=== PATIENT | male | born 1960 | race Caucasian/White ===

== ENCOUNTER 2017-01-17 14:09 | Emergency (ER) | payer BC, MEDICARE ==
[~2017-01-17] VITALS: Ht 170.2 cm; Wt 90.7 kg
[~2017-01-17 14:09] MED LIST: ETOD400T PO; HYDR-2802 PO; LINA1TAB5 PO; MILN50TA PO; PRAM0.5T5 PO; PREG25CA PO; TAPE50TA10 PO; TIZA4CAP PO; ZOLP10TA4 PO
[2017-01-17 14:27] VITALS: BP 127/71
--- NOTE | 2017-01-17 14:59 | RAD ---
Examination: 2 views of the right hip and a frontal view of the pelvis History: History of right hip pain for 3 weeks Comparison: None available Findings: The bilateral femoral heads are within the acetabula. Mild joint space loss identified in the bilateral hip joints. There is no acute fracture or dislocation identified. Impression: 1. No acute osseous findings. 2. Mild degenerative changes bilateral hip joints.
[2017-01-17] MEDS ORDERED: PRED20TA PO (15:44)
[2017-01-17] MEDS ORDERED: CYCL10TA2 PO (15:44)
--- NOTE | 2017-01-17 15:44 | PHYS DOC ---
Past Medical History Past Medical History: Arthritis, Depression, Diabetes-Type II, Fibromyalgia, Other Additional Past Medical Histor: rheumatoid arthritis,LUPUS Past Surgical History: Knee Replacement, Pacemaker, Other Additional Past Surgical Histo: L knee repl, R rotator cuff sx, back sx Alcohol Use: None Drug Use: None Adult General Chief Complaint Chief Complaint: HIP PAIN [place] [facility] [employer] [facility] HPI Patient is a 56 year old male presents emergency Department with right hip pain that radiates down to the knee. Patient states that this is been going on for a couple weeks. He states that he does take hydrocodone 7.5 which is really not even touching the pain or discomfort. Patient does state that he has arthritis throughout his body. He also states that he has multiple health problems. Patient also states that he is unable to take ibuprofen 2 diabetes. Patient denies any falls or injuries. He denies any numbness or tingling down into the lower leg however he does have the numbness and tingling to the knee. He states the pain is a 7-10 he states that it is a sharp type of pain and discomfort. Review of Systems Review of Systems Constitutional: Denies fever or chills [] Eyes: Denies change in visual acuity, redness, or eye pain [] HENT: Denies nasal congestion or sore throat [] Respiratory: Denies cough or shortness of breath [] Cardiovascular: No additional information not addressed in HPI [] GI: Denies abdominal pain, nausea, vomiting, bloody stools or diarrhea [] : Denies dysuria or hematuria [] Musculoskeletal: Denies back pain complaint of right hip pain and discomfort. Integument: Denies rash or skin lesions [] Neurologic: Denies headache, focal weakness or sensory changes [] Endocrine: Denies polyuria or polydipsia [] Allergies Allergies Allergies Coded Allergies Type Severity Reaction Last Updated Verified No Known Drug Allergies 10/17/13 No Physical Exam Physical Exam Constitutional: Well developed, well nourished, no acute distress, non-toxic appearance. [] HENT: Normocephalic, atraumatic, bilateral external ears normal, oropharynx moist, no oral exudates, nose normal. [] Eyes: PERRLA, EOMI, conjunctiva normal, no discharge. [] Neck: Normal range of motion, no tenderness, supple, no stridor. [] Cardiovascular:Heart rate regular rhythm, no murmur [] Lungs & Thorax: Bilateral breath sounds clear to auscultation [] Skin: Warm, dry, no erythema, no rash. [] Back: No tenderness Extremities: Patient was noted to have point tenderness over the right hip area causing the same type of pain in which she states she's been having., no cyanosis, no clubbing, ROM intact, no edema. Peripheral pulses 2+ cap refill brisk less than 2 seconds. Neurologic: Alert and oriented X 3, normal motor function, normal sensory function, no focal deficits noted. [] Psychologic: Affect normal, judgement normal, mood normal. [] Current Patient Data Vital Signs Vital Signs Date Time Temp Pulse Resp B/P (MAP) Pulse Ox O2 Delivery O2 Flow Rate FiO2 01/17/17 14:27 97.7 70 18 127/71 (89) 97 Room Air 97.7 EKG EKG [] Radiology/Procedures Radiology/Procedures [] Course & Med Decision Making Course & Med Decision Making Pertinent Labs and Imaging studies reviewed. (See chart for details) Patient will be provided with morphine injection here the emergency department as well as Norflex injection. He'll be discharged home with prednisone in which he was instructed will cause his glucoses to be elevated. He was also instructed to monitor his glucoses while on the prednisone and adjust medication accordingly if necessary. Patient was also provided a prescription for Flexeril. He was instructed this medication will cause drowsiness do not take any be alert and oriented. Patient can continue to take his hydrocodone as directed. Patient states he does have an appointment with his primary care physician on Thursday. Patient will be discharged home in stable condition signs and symptoms to return back to emergency department has been provided. Patient has called his to come and pick him up that she had dropped him off. He will be discharged home in stable condition. Patient agrees with discharge instructions treatment regimens and follow-up recommendations. [] Dragon Disclaimer Dragon Disclaimer This electronic medical record was generated, in whole or in part, using a voice recognition dictation system. Departure Departure Impression: Primary Impression: Right sciatic nerve pain Disposition: HOME, SELF-CARE Condition: STABLE Referrals: WILMER GRIFFITH (PCP) Patient Instructions: Sciatica, [id number] Additional Instructions: Activity as tolerated. Medications as prescribed. Prednisone will cause her glucoses to be elevated please monitor your glucoses and change her medication accordingly. Flexeril will cause drowsiness do not take any be alert and oriented. Continue with your hydrocodone in which she state you have at home. Taking Flexeril and hydrocodone may cause severe drowsiness and increase her chances of falls. You may also try ice packs to the hip area to help with pain and discomfort. If you're lying on your back may sure you use a pillow underneath her knees to help relieve some of the pain and discomfort in the hip area. When lying on your side make sure you have a pillow between your needs to help her. Leg up for proper body mechanics. Keep your appointment with her primary care physician which she state you have tomorrow. Return back to the emergency department for signs and symptoms of become worse. Scripts Prednisone (PREDNISONE) 20 Mg Tablet 40 MG PO DAILY, #14 TAB Prov: VIRGIE FISHER APRN 01/17/17 Cyclobenzaprine Hcl (CYCLOBENZAPRINE HCL) 10 Mg Tablet 10 MG PO TID, #30 TAB Prov: VIRGIE FISHER APRN 01/17/17 VIRGIE FISHER APRN Jan 17, 2017 15:44
[2017-01-17] MEDS ORDERED: ORPHENADRINE CITRATE 60 MG/2 ML VIAL. IM ONE (15:45)
[2017-01-17] MEDS ORDERED: MORPHINE SULFATE 4 MG/ML DISP.SYRIN. IM ONE (15:45)
== END 2017-01-17 15:55 | disposition home or self-care (01) ==
LOC: ER 14:09
DX: M54.31 Sciatica, right side (principal); F32.9 Major depressive disorder, single episode, unspecified; E11.9 Type 2 diabetes mellitus without complications; M79.7 Fibromyalgia; M06.9 Rheumatoid arthritis, unspecified; Z96.659 Presence of unspecified artificial knee joint
CPT/HCPCS: 73502; 96372; 99284; J2270; J2360

== ENCOUNTER 2017-03-18 23:57 | Emergency (ER) | payer BC, MEDICARE ==
[~2017-03-18 23:57] MED LIST changes: +CYCL10TA2 PO; +PRED20TA PO
[2017-03-19 00:35] VITALS: BP 125/94
== END 2017-03-19 04:57 | disposition left against medical advice (07) ==
LOC: ER 23:57
DX: M54.31 Sciatica, right side (principal); L93.0 Discoid lupus erythematosus; Z53.21 Procedure and treatment not carried out due to patient leaving prior to being seen by health care provider

== ENCOUNTER → 2019-08-22 | Outpatient (CLI) | payer BC, MEDICARE ==
[~2019-08-22] MED LIST changes: +IOHEXOL 180 MG/ML 10 ML VIAL. IT ONE; +LIDOCAINE 1% Multi-Dose 20 ML VIAL. ID ONE
--- NOTE | 2019-08-22 16:23 | [facility]IC ---
CT lumbar spine exam History: Lumbar stenosis, pain into the posterior side of the both legs Technique: CT imaging was performed of the lumbar spine after injection for lumbar myelogram. Multiplanar reconstruction images are submitted. Exposure: One or more of the following individualized dose reduction techniques were utilized for this examination: 1. Automated exposure control 2. Adjustment of the mA and/or kV according to patient size 3. Use of iterative reconstruction technique. Comparison: October 17, 2013; July 14, 2019 Findings: Lumbar vertebral body stature is overall maintained. There is posterior interspinous fusion device at the L4-5 level as seen on the more recent exam, superior aspect of the device not adjacent to mineralized bone, small bone fragment just superiorly now with more linear margin of the posterior aspect of the L4 spinous process adjacent to the device. Inferior margin of device is adjacent to normally mineralized L5 spinous process. There is grade 1 anterior spondylolisthesis at L4-5. There is again moderate degenerative disc disease at L1-L2 and L5-S1 and also greater posteriorly at L4-5, minimally at L3-4. There is vacuum disc disease at L5-S1, developed since the 2013 exam. Conus terminates at the inferior aspect of L1. T12-L1: Neural foramina and spinal canal are adequate. L1-L2: There is again minimal disc osteophyte complex and partially calcified bulge slightly indenting the ventral thecal sac without spinal stenosis. Neural foramina are adequate. There is [id number] facet degenerative change. L2-L3: There is mild buckling of the ligamentum flavum and facet hypertrophic change. There is minimal partially calcified bulge as seen previously, very mild indentation upon the ventral thecal sac without spinal stenosis. Neural foramina are overall adequate. L3-L4: There is minimal disc osteophyte complex and partially calcified bulge. There is mild indentation upon the ventral thecal sac. There is again moderate facet degenerative change and mild to moderate buckling of the ligamentum flavum. Spinal canal is adequate. There is mild narrowing of the inferior neural foramina. L4-L5: There is again fairly severe facet degenerative change, gas in the facet articulations bilaterally. There is [id number] buckling of the ligamentum flavum. There is minimal partially calcified bulge, mild indentation upon the ventral thecal sac. Spinal canal is not significantly narrowed. There is disc osteophyte complex resulting in fairly severe narrowing of the right neural foramen with impingement of the exiting right L4 nerve root extending to proximal extraforaminal region, developed since the 2014 exam. There is minimal posterior narrowing of the inferior left neural foramen by facet. L5-S1: There is again bilateral facet degenerative change, minimal gas in the facet articulations. Spinal canal is overall adequate. There is very minimal disc osteophyte complex. There is minimal narrowing of the right neural foramen mostly from facet. There is again moderate to severe narrowing of the left neural foramen by disc osteophyte complex and facet with contact of the exiting left L5 nerve root. Impression: 1. Comparing with the 2014 exam, there is L4-5 posterior interspinous fusion device now present although the superior margin device is adjacent to demineralized bone or fibrosis, now more linear-appearing defect of the posterior L4 spinous process which may be due to osteolysis. There is again grade 1 anterior spondylolisthesis L4-5. There is multilevel lumbar facet degenerative change. 2. There is multilevel lumbar degenerative disc disease greatest L1-2, L4-5, and L5-S1. 3. There is neural foramina compromise as stated, more significant narrowing on the right at L4-5 and on the left at L5-S1, progressed on the right at L4-5 in the interval with contact of the exiting right L4 nerve root extending to proximal extraforaminal region. Electronically signed by: Jose Antonio Mckniney MD (08/22/2019 4:20 PM) [email or web address]
--- NOTE | 2019-08-22 16:24 | KCIC ---
Lumbar Myelogram History: Lumbar stenosis, pain into the posterior side of both legs, history of lumbar surgery Technique: Patient was informed of the risks of the procedure to include pain, infection, bleeding, seizures, nerve root injury, and allergic reaction to the contrast. All questions were answered. Patient signed a written consent form for a lumbar myelogram. The patient was placed in a prone oblique position on the fluoroscopy table. External site of the lower back was prepped and draped in the usual sterile fashion. Betadine was utilized for cleansing solution. 1% lidocaine was utilized for local anesthesia at the anticipated site of puncture right L3-4 interlaminar space. A 19-gauge guiding needle was advanced into the soft tissues. Through the guiding needle, a 25 gauge Pierre needle was advanced until there was return of cerebral spinal fluid. Approximately 15 cc Omnipaque 180 were then injected during fluoroscopic visualization. The needles were removed. Fluoroscopic spot images were acquired of the lumbar spine. Due to leg pain, patient could not stand, images performed in semiupright position to include flexion and extension lateral views The patient was then transferred to the CT department for CT examination of the lumbar spine. There were no immediate complications. Fluoroscopy time: 1 minute 8 seconds, 18 images Findings: There is no evidence of myelographic block. There is posterior L4-5 interspinous fusion device. There is degenerative disc disease greatest at L1-2, L4-5, and L5-S1. There is mild grade 1 anterior spondylolisthesis at L4-5 decreased with flexion and to a lesser degree with extension. There is minimal posterior subluxation of L1 relative to L2 fairly similar with flexion and extension. There are anterior external defects variably throughout the lumbar spine. Impression: 1. There is degenerative disc disease greatest at L1-2, L4-5, and L5-S1. 2. There is mild grade 1 anterior spondylolisthesis L4-5, decreased with flexion and extension. 3. There are anterior extradural defects variably throughout the lumbar spine. Electronically signed by: Jose Antonio Mckinney MD (08/22/2019 4:21 PM) [email or web address]
== END | disposition home or self-care (01) ==
LOC: KCIC 09:41
PROVIDERS: ATTEND Neurological Surgery
DX: M43.16 Spondylolisthesis, lumbar region (principal); M48.062 Spinal stenosis, lumbar region with neurogenic claudication; M51.36 Other intervertebral disc degeneration, lumbar region; M25.78 Osteophyte, vertebrae
CPT/HCPCS: 72132; 72265; Q9965

== ENCOUNTER → 2019-09-06 | Outpatient (CLI) | payer MEDICARE ==
[~2019-09-06] MED LIST changes: +HYDR-2769 PO; +INSU100V37 SQ; -IOHEXOL 180 MG/ML 10 ML VIAL. IT ONE; -LIDOCAINE 1% Multi-Dose 20 ML VIAL. ID ONE; +METF10007 PO; +TRAZ-118 PO
== END | disposition home or self-care (01) ==
LOC: SURGPAT 10:32
PROVIDERS: ATTEND Neurological Surgery
DX: Z01.818 Encounter for other preprocedural examination (principal); M43.16 Spondylolisthesis, lumbar region; M47.26 Other spondylosis with radiculopathy, lumbar region
CPT/HCPCS: 36415; 85610; 85730; 87641

== ENCOUNTER → 2019-11-10 | Outpatient (CLI) | payer MEDICARE ==
[2019-09-17 11:00] VITALS: BP 106/70
[~2019-11-10] MED LIST changes: +DOCU-153 PO; +METH750T2 PO; +OXYC1TAB15 PO; -PREG25CA PO; +PREG25CA41 PO
--- NOTE | 2019-11-10 14:26 | RAD ---
INDICATION: Back pain COMPARISON: September 15, 2019 IMPRESSION: Lumbar spine: 2 views obtained. Postoperative changes to the lumbar spine with pedicle screws and stabilizing kim at L4-5 with posterior decompression changes and artificial disc. Grade 1 anterolisthesis of L4 on 5. Degenerative changes are identified with osteophyte formation at the vertebral body endplates. Mild wedging of the L2 L1 vertebral bodies again seen. Electronically signed by: Corey Herron MD (11/10/2019 2:24 PM) [id number]
== END | disposition home or self-care (01) ==
LOC: RAD 11:38
PROVIDERS: ATTEND Neurological Surgery
DX: M47.816 Spondylosis without myelopathy or radiculopathy, lumbar region (principal); M25.78 Osteophyte, vertebrae
CPT/HCPCS: 72100

== ENCOUNTER → 2019-12-19 | Outpatient (CLI) | payer MEDICARE ==
[2019-09-17 11:00] VITALS: BP 106/70
[~2019-12-19] MED LIST changes: +PREG200C PO; +ZOLP5TAB5 PO
--- NOTE | 2019-12-19 09:54 | RAD ---
CT lumbar spine without contrast HISTORY: Lumbar radiculopathy. COMPARISON: CT lumbar spine September 15, 2019. FINDINGS: Lumbar vertebral body height and alignment intact. 2 mm anterolisthesis of L4 on L5 is stable. Since the prior exam the L4-L5 spinous process fusion device has been removed and there are new postoperative changes of right L4 laminotomy and L4-5 foraminotomy, discectomy and fusion at L4-5 with interbody spacer and bilateral pedicle screws with rods. No bone lysis surrounding the pedicle to suggest loosening. No abnormal positioning or migration of the interbody spacer evident which is slightly right of midline within the interbody space, there is mild asymmetric lytic bone defect with mildly irregular margins of the L4 inferior vertebral endplate and trabecular bone of the vertebral body best demonstrated coronal images 17-20 and sagittal images 33-35 involving a depth of 25 percent of the vertebral height, with a smaller lytic defect of the L5 vertebral superior endplate, not typical of a fracture given the irregular margins, these could be a surgical defect although development of localized bone lysis from loosening related to foreign body granulomatous response to the spacer is also a possibility, this defect is not apparent on the postoperative x-rays from November 10, 2019 although could be below the sensitivity for detection on x-ray imaging relative to CT imaging. The right L4 pedicle screw breaches the anterior lateral vertebral cortex to the right vertebral space a distance proud of the bone of 5 mm. Aortoiliac artery calcified plaque. Linear scarring dorsal paraspinal tissues. Noncontrast CT imaging has limited sensitivity for detecting postoperative fluid collections. Disc disease is described below. L1-L2: Disc height loss, mild to moderate disc bulge, mild annulus calcification, at least mild spinal canal and neural foraminal stenoses, stable. L2-L3: Mild disc bulge with annulus calcification, at least mild spinal canal and [id number] neural foraminal stenoses, stable. L3-L4: Mild disc bulge, annulus calcification, mild lateral vertebral endplate spurring, facet hypertrophy and spurring, at least mild spinal canal stenosis and [id number] neural foraminal stenoses, stable. L4-L5: Streak artifact somewhat limits bony and soft tissue detail at this level. Bony spinal canal grossly decompressed although some residual mild canal narrowing due to persistent ligament flavum thickening combined with facet hypertrophy and spurring is possible. There is increased soft tissue density at the right lateral recess and right neural foramina presumably postsurgical scarring although recurrent or residual disc fragment at this region cannot be excluded on this exam, which obliterates the perineural fat about the foraminal right L4 nerve. Right lateral vertebral endplate spurring contributes to at least residual moderate right foraminal stenosis. There is mild left foraminal stenosis. L5-S1: Disc height loss, disc bulge, lateral vertebral endplate spurring and facet spurring, at least mild spinal canal stenosis, and moderate to severe neural foraminal stenoses, stable. IMPRESSION: 1. Since the prior study there has been postoperative change of right L4-L5 laminotomy and foraminotomy, discectomy and fusion with interbody spacer and bilateral pedicle screws with rods. There is a localized lytic bone defect of the inferior L4 vertebral body endplate and subchondral trabecular bone with a smaller defect of the L5 vertebral superior endplate adjacent of the interbody spacer. See above. 2. Lumbar disc disease and arthritic change again demonstrated as described above. Exposure: One or more of the following individualized dose reduction techniques were utilized for this examination: 1. Automated exposure control 2. Adjustment of the mA and/or kV according to patient size 3. Use of iterative reconstruction technique Electronically signed by: Tapan Aranda MD (12/19/2019 9:51 AM) [id number]
== END | disposition home or self-care (01) ==
LOC: CT 08:00
PROVIDERS: ATTEND Neurological Surgery
DX: M51.16 Intervertebral disc disorders with radiculopathy, lumbar region (principal); M47.26 Other spondylosis with radiculopathy, lumbar region; M48.07 Spinal stenosis, lumbosacral region
CPT/HCPCS: 72131

== ENCOUNTER → 2019-12-26 | Outpatient (CLI) | payer MEDICARE ==
[2019-09-17 11:00] VITALS: BP 106/70
--- NOTE | 2019-12-26 14:16 | PAIN ---
DATE OF SERVICE: 12/26/2019 INITIAL CONSULTATION FOR PAIN CLINIC CHIEF COMPLAINT: Low back and bilateral lower extremity pain. HISTORY OF PRESENT ILLNESS: This is a 59-year-old male who presents with history of pain in low back, bilateral lower extremities, worse for about 2 months after he was recently postoperative from the lumbar hemilaminectomy and microdecompression with posterior instrumentation at L4-L5 that was on 09/14. The patient was doing very well after the surgery. He fell at home, tripped over a bag of mulch in the yard and fell on his back and had pain into the bilateral lower extremity since that time in the posterior gluteus and posterior thighs, radiating into the posterior knees as well and across the low back. The patient reports it is becoming more constant. It is a sharp pain in the back, dull and aching in the legs, sometimes sharp in the legs as well, burning in quality also. The patient reports moving or turning can exacerbate the pain, standing and walking, especially changing positions, sitting for more than 15-20 minutes, also standing for more than 20-30 and also significant fatigability of the lower extremities with walking or standing. The patient reports it awakens him from sleep at least 3-4 times a night, can affect his bowel or bladder control, but no incontinence. The patient reports some increased urinary frequency, does impede his activities, walking with a cane at times, does not have it with him today. The patient has been doing physical therapy exercises, which he learned from the previous surgery daily with stretching and strengthening without significant improvement. The patient has been walking every day despite the pain, but his legs tire out very quickly even after about 5-10 minutes, he has to stop and rest. The patient rates his disability from 0-10, 10 being the worst, is a 10 with recreational activities and social activity, 5 with sexual behavior, life support activities, and 10 with self care activities. The patient has tried axsa-jme-vucnkmq ibuprofen, also Tylenol, hydrocodone, also taking Lyrica and meloxicam, all without significant improvement in the pain. The patient did have a CT scan of the lumbar spine showing postoperative changes, right L4-L5 laminotomy and foraminotomy, diskectomy and fusion with interbody spacer and bilateral pedicle screws with rods and lumbar disk disease and arthritic change L5-S1 with mild spinal canal stenosis, [id number]-gd-jrlmgb neural foraminal stenosis, also ijpw-ku-vadxkyis neural foraminal stenosis at L3-L4. PAST MEDICAL HISTORY: Significant for pacemaker; type 2 diabetes, now insulin-dependent; restless leg syndrome; arthritis. PREVIOUS SURGERY: Include total knee in 2012 in the left, right rotator cuff repair, lumbar surgery in 2013, removal of hardware, decompression, L4-L5 fusion in 09/2019, previous pacemaker placement, and bilateral carpal tunnel repairs. CURRENT MEDICATIONS: Include pregabalin, zolpidem, Mirapex, metformin, hydrocodone, insulin, methocarbamol. ALLERGIES: The patient has no known drug allergies. FAMILY HISTORY: Significant for diabetes, arthritis, and hypertension. SOCIAL HISTORY: The patient does not drink alcohol, does not smoke. Denies any illegal, illicit or recreational drugs. He is , lives with his spouse, lives locally in [place], [place]. Reports he is currently disabled. REVIEW OF SYSTEMS: The patient's review of systems is positive for those items mentioned in history of present illness. All systems reviewed and otherwise negative. It is complete, full and well documented on the patient's chart. PHYSICAL EXAMINATION: VITAL SIGNS: The patient's blood pressure , pulse is 80, respirations 16, temperature 97.7 degrees Fahrenheit, height is 5 feet 7 inches, weight is 218 pounds. GENERAL: The patient is awake, alert, oriented, appropriate, very pleasant demeanor. HEENT: Shows normocephalic, atraumatic. Extraocular movements are intact and symmetrical. Oral cavity: Mucous membranes moist and pink. Dentition is intact. NECK: Shows anterior throat supple without palpable lymphadenopathy noted. Swallow reflex symmetrical. CHEST: Shows normal on inspection. Breath sounds are clear bilaterally. HEART: Shows S1, S2 clear. No murmurs auscultated. ABDOMEN: Soft, nontender, nondistended. No palpable organomegaly is noted. No rebound or guarding demonstrated. BACK: Shows spine grossly in the midline. Normal appearing thoracic kyphosis, lumbar lordotic curvature is slightly flattened with well-healed surgical scar noted. Lumbar paraspinous muscle shows symmetrical on inspection, on palpation shows some moderate tenderness diffusely bilaterally, but only diffusely without significant radiation. The patient's back shows moderate tenderness with palpation diffusely, mobility shows some moderate tenderness with rotation both right greater than 10 degrees and left greater than 10 degrees, also extension greater than 10 degrees and forward flexion at 45 degrees, all reproduce some moderate pain across the low back, but not into the lower extremities. EXTREMITIES: The patient's lower extremities show deep tendon reflexes at 1+/4 in the patellar and tendo calcaneus tendons are equal. Motor exam is approximately 4 on a scale of 5, but symmetrical with dorsiflexion, extension, quadriceps and hamstring flexion and are equal bilaterally. Peripheral pulses are 1+ posterior tibia. No peripheral edema is noted. Lower extremities are warm and dry to touch, equal in color and appearance. Straight leg raise noted to be mildly positive on the right about 40 degrees with pain into the posterior gluteus, posterior thigh, but is decreased with knee flexion, but not relieved. Left side is negative. Gaenslen's and Cody's maneuvers are negative bilaterally. Peripheral pulses are 1+. No peripheral edema is noted. The patient is able to stand, stand on his toes and some moderate discomfort with putting all his weight on one foot or the other. Walks with a very slow cautious gait, does not appear to favor the right or left lower extremity significantly, but is very careful with his movements and has a very straight appearance of his back when ambulating and appears uncomfortable, not using any assistive devices on his visit today, but again has a cane, he uses occasionally when he is going further distances. SKIN: Shows warm and dry, good turgor. No edema. No sores, rashes or bruising. IMPRESSION: 1. This is a 59-year-old male with history of recent surgery and then fall about 2 months ago, pain in the low back, bilateral lower extremities in a radicular fashion following L5-S1 dermatomal distribution. 2. CT scan of lumbar spine as noted. 3. Arthritis. 4. Diabetes. PLAN: Options were discussed with the patient including continued physical therapies, medication managements, interventional techniques and he is doing physical therapy routinely, exercises routinely, also walking daily and stretching daily, also is taking anti-inflammatories as well as narcotics and Lyrica without significant decrease in pain. He would like to pursue interventional techniques. We discussed a lumbar epidural steroid using description as well as anatomical models to describe the procedure. The patient will wait for preauthorization with insurance provider. In the meantime, we will continue with stretching and strengthening exercises, walking daily as tolerated. His neurosurgeon tried Medrol Dosepak without significant improvement. Therefore, we will not repeat this as well as risk of increased blood glucose. The patient will wait for preauthorization. We will plan on L5-S1 translaminar approach versus caudal approach for L5-S1 for his radicular pain. SHAHEEN BARRAGAN MD DR: EFRAÍN/jose luis JOB#: [id number] / [id number] WILMER Avilez
== END | disposition home or self-care (01) ==
LOC: PNCL 10:15
PROVIDERS: ATTEND Anesthesiology
DX: G56.03 Carpal tunnel syndrome, bilateral upper limbs (principal); E11.9 Type 2 diabetes mellitus without complications; M19.90 Unspecified osteoarthritis, unspecified site
CPT/HCPCS: G0463

== ENCOUNTER → 2020-01-09 | Outpatient (CLI) | payer MEDICARE ==
[2019-09-17 11:00] VITALS: BP 106/70
[~2020-01-09] MED LIST changes: +IOHEXOL 180 MG/ML 10 ML VIAL. ONE; +LISI10TA2 PO; +methylPREDNISolone ACETATE 40 MG/ML VIAL. ONE; +methylPREDNISolone ACETATE 80 MG/ML VIAL. ONE
--- NOTE | 2020-01-09 10:17 | PAIN ---
DATE OF SERVICE: 01/09/2020 PROGRESS NOTE FOR PAIN CLINIC DIAGNOSES: Lumbar radiculopathy with lumbar degenerative disk disease and lumbar post-laminectomy syndrome. HISTORY OF PRESENT ILLNESS: The patient is a 59-year-old male who returns for followup status post initial evaluation and preauthorization for lumbar epidural steroid injection. He has obtained that and would like to proceed, still significant pain in low back and bilateral lower extremities, right greater than left, but present bilaterally, posterior gluteus, posterior thighs, posterior calves, worse with walking, standing, changing positions, waking him from sleep at least 4-5 times a night. The patient reports it is a 9 on a scale of 10 at all times, worst, average and least and is a 9 today. The patient reports it is burning, becoming more unbearable, constant, worse with walking and weightbearing. The patient reports no new motor or sensory deficits, no new bowel or bladder incontinence. PHYSICAL EXAMINATION: VITAL SIGNS: The patient's blood pressure is 141/88, pulse 70, respirations 18, temperature 97.9 degrees Fahrenheit, weight is 214 pounds. GENERAL: The patient is awake, alert, oriented, appropriate, very pleasant demeanor. HEENT: Shows normocephalic, atraumatic. Extraocular movements are intact and symmetrical. Oral cavity: Mucous membranes moist and pink. Dentition is intact. NECK: Shows anterior throat supple without palpable lymphadenopathy noted. Swallow reflex symmetrical. CHEST: Shows normal on inspection. Breath sounds are clear bilaterally. HEART: Shows S1, S2 clear. No murmurs auscultated. ABDOMEN: Soft, nontender, nondistended. No palpable organomegaly is noted. No rebound or guarding demonstrated. BACK: Shows spine grossly in the midline. Normal appearing thoracic kyphosis with significant flattening of lumbar the lordotic curvature. Well-healed surgical scar noted. Lumbar paraspinous muscle shows symmetrical on inspection, palpation shows some moderate tenderness diffusely bilaterally going diffusely without significant radiation. The patient has good rotation of motion of the lumbar spine, both laterally as well as extension and flexion with some moderate decrease in limitation on extension secondary to mechanical movement without significant pain involved: Lower extremities show deep tendon reflexes at 1+ in the patellar and tendo calcaneus tendons. Motor exam is approximately 4 on a scale of 5, but equal and symmetrical peripheral dorsiflexion, extension, quadriceps and hamstring flexion. Peripheral pulses are 1+ posterior tibia. No peripheral edema bilaterally. Options were discussed with the patient. The patient's old chart was reviewed as his current medication regimen updated. Current review of systems updated today as well and we will proceed with a lumbar epidural steroid injection today with fluoroscopic guidance. Risks were discussed including but not limited to bleeding, infection, possibility of epidural hematoma, subsequent neurological compromise, dural puncture, headaches, spinal cord and/or nerve damage, side effects of steroid medication and poor results regarding pain control. The patient understands and wished to proceed. The patient will return to clinic in approximately 2 weeks for followup. She was counseled on return appointment, activity level and side effects to be aware of. DIAGNOSIS: Lumbar radiculopathy with lumbar degenerative disk disease and lumbar post-laminectomy syndrome. PROCEDURE: Lumbar epidural steroid injection, translaminar approach at L5-S1 level using C-arm fluoroscopic guidance under sterile prep and drape using local anesthetic. MEDICATION INJECTED: A total of 120 mg Depo-Medrol plus 10 mL of preservative-free normal saline and 2 mL of contrast. CONDITION AT DISCHARGE: Stable. The patient tolerated procedure well, had no complications. SHAHEEN BARRAGAN MD DR: EFRAÍN/jose luis JOB#: [id number] / [id number]
== END ==
LOC: PNCL 08:13
PROVIDERS: ATTEND Anesthesiology
DX: M51.16 Intervertebral disc disorders with radiculopathy, lumbar region (principal); M96.1 Postlaminectomy syndrome, not elsewhere classified
CPT/HCPCS: 62323; J1030; J1040; Q9965

== ENCOUNTER → 2020-02-13 | Outpatient (CLI) | payer MEDICARE ==
[2019-09-17 11:00] VITALS: BP 106/70
[~2020-02-13] MED LIST changes: -LISI10TA2 PO
--- NOTE | 2020-02-13 09:04 | PAIN ---
DATE OF SERVICE: 02/13/2020 PROGRESS NOTE FOR PAIN CLINIC DIAGNOSES: Lumbar radiculopathy with lumbar degenerative disk disease and lumbar post-laminectomy syndrome. HISTORY OF PRESENT ILLNESS: The patient is a 59-year-old male who returns for followup status post lumbar epidural steroid injection x 1. The patient reports about 60% improvement overall for the first 3 weeks or so. The pain is beginning to return now, but only for the past few days. The patient reports it is in the low back, bilateral lower extremities, posterior gluteus, posterior thighs, posterior calves, worse with walking, standing, changing positions, especially getting up from a seated position. The patient reports it awakens him from sleep occasionally, but not every night. Initially for the first 3 weeks or so, is doing better with distance walking, doing household activities and work activities, recreational activities with greater ease and comfort and sleeping better. Now, the pain is beginning to awaken him from sleep once again. The patient reports no new motor or sensory deficits, no new bowel or bladder incontinence or other complaints. PHYSICAL EXAMINATION: VITAL SIGNS: The patient's blood pressure is 147/93, pulse 71, respirations 18, temperature 97.8 degrees Fahrenheit, and weight is 213 pounds. GENERAL: The patient is awake, alert, oriented, appropriate, very pleasant demeanor. HEENT: Head is normocephalic, atraumatic. Extraocular movements are intact and symmetrical. Oral cavity: Mucous membranes moist and pink. Dentition is intact. NECK: Shows anterior throat supple without palpable lymphadenopathy noted. Swallow reflex symmetrical. CHEST: Shows normal on inspection. Breath sounds are clear bilaterally. HEART: Shows S1, S2 clear. No murmurs auscultated. ABDOMEN: Soft, nontender, and nondistended. No palpable organomegaly is noted. No rebound or guarding demonstrated. BACK: Shows spine grossly in the midline. Well-healed surgical scarring noted in the lumbar distribution with normal or slightly flattened lumbar lordotic curvature. Lumbar paraspinous muscle shows symmetrical on inspection, on palpation shows some moderate tenderness diffusely bilaterally, only diffusely without significant radiation. The patient has good rotational motion of lumbar spine with some mild pain with extension and forward flexion, but only mildly so, but not with right and left lateral rotation. EXTREMITIES: The patient's lower extremities show deep tendon reflexes at 1+ in the patellar and tendo calcaneus tendons. Motor exam is approximately 4 on a scale of 5, but equal and symmetrical dorsiflexion, extension, quadriceps and hamstring flexion symmetrical. Peripheral pulses are 1+. No peripheral edema is noted bilaterally. Options were discussed with the patient. The patient's old chart was reviewed as his current medication regimen updated. Current review of systems updated today as well. We will proceed with a second in a series of lumbar epidural steroid injection today with fluoroscopic guidance. Risks were again discussed including, but not limited to bleeding, infection, possibility of epidural hematoma, subsequent neurological compromise, dural puncture, headaches, spinal cord and/or nerve damage, side effects of steroid medication and poor results regarding pain control. The patient understands and wished to proceed. The patient will return to clinic in approximately 2 weeks for followup. He was counseled as to return appointment, activity level and side effects to be aware of. DIAGNOSIS: Lumbar radiculopathy with lumbar degenerative disk disease and lumbar post-laminectomy syndrome. PROCEDURE: Lumbar epidural steroid injection, translaminar approach L5-S1 level using C-arm fluoroscopic guidance under sterile prep and drape using local anesthetic. MEDICATION INJECTED: A total of 120 mg Depo-Medrol plus 10 mL of preservative-free normal saline and 2 mL of contrast. CONDITION AT DISCHARGE: Stable. The patient tolerated procedure well, had no complications. SHAHEEN BARRAGAN MD DR: EFRAÍN/jose luis JOB#: [id number] / [id number]
== END | disposition home or self-care (01) ==
LOC: PNCL 08:09
PROVIDERS: ATTEND Anesthesiology
DX: M51.16 Intervertebral disc disorders with radiculopathy, lumbar region (principal); I10 Essential (primary) hypertension; M96.1 Postlaminectomy syndrome, not elsewhere classified; E11.9 Type 2 diabetes mellitus without complications; Z79.4 Long term (current) use of insulin; Z79.899 Other long term (current) drug therapy
CPT/HCPCS: 62323; J1030; J1040; Q9965

== ENCOUNTER → 2020-03-12 | Outpatient (CLI) | payer MEDICARE ==
[2019-09-17 11:00] VITALS: BP 106/70
[~2020-03-12] MED LIST changes: -IOHEXOL 180 MG/ML 10 ML VIAL. ONE; +LISI10TA2 PO; -methylPREDNISolone ACETATE 40 MG/ML VIAL. ONE; -methylPREDNISolone ACETATE 80 MG/ML VIAL. ONE
--- NOTE | 2020-03-12 08:18 | PDOC ---
Progress Note - Pain Clinic Date of Service: DOS: DATE: 03/12/20 TIME: 08:15 Diagnosis: Dx: Lumbar radiculopathy with lumbar degenerative disc disease lumbar postlaminectomy syndrome History or Present Illness: HPI: 59-year-old male returns follow-up status post lumbar epidural straight injection x2. Patient ports that 60 to 70% improvement the first 3 weeks the pain returning now over the past few days in the low back especially the right lower extremity posterior gluteus posterior thigh posterior calf also on the left side but mostly on the right. Patient ports worse with walking standing changing positions he find himself just sitting and watching TV most of the day because the pain is too great now over the past week to do much else patient reports is becoming more depressed because of the lack of ability to exercise and walk and stand patient rates pain as a 7 on scale 10 is worse over the past week 7 on average and a 6 at its least is a 7 today. Pain scribed as constant sharp stinging burning and shooting. Patient reports no new motor or sensory deficits no new bowel or bladder incontinence or other complaints. Physical Exam: VS: Blood pressure is 112/75 pulse 64 respirations 26 temperature 97.9 F weight is 207 pounds PE: PHYSICAL EXAMINATION: GENERAL: The patient is awake, alert, oriented, appropriate, very pleasant demeanor HEENT: Shows normocephalic, atraumatic. Extraocular movements are intact and symmetrical. Oral cavity: Mucous membranes moist and pink. NECK: Shows anterior throat supple without palpable lymphadenopathy noted. Swallow reflex symmetrical. CHEST: Shows normal on inspection. Breath sounds are clear bilaterally, no rales rhonchi or wheezes auscultated. HEART: Shows S1, S2 clear. No murmurs auscultated. ABDOMEN: Soft, nontender, nondistended. No palpable organomegaly is noted. No rebound or guarding demonstrated. BACK: Shows spine grossly in the midline. Normal-appearing cervical lordotic curvature. There is slightly increased thoracic kyphosis, some minor flattening of the lumbar lordotic curvature. Lumbar paraspinous muscles show symmetrical on inspection, on palpation shows some moderate tenderness diffusely throughout the upper, middle and lower distribution of the paraspinous muscles bilaterally without specific trigger points, without radiation of pain. The patient has good rotational motion of the lumbar spine, both laterally as well as extension and flexion without significant difficulty. No tenderness over the spinous processes, sacrum or sacroiliac regions. EXTREMITIES: Lower extremities show deep tendon reflexes 1+ in the patellar and tendo calcaneus tendons. Motor exam is 4 on a scale of 5 with right dorsiflexion, extension, quadriceps and hamstring flexion and 4/5 on the left. Peripheral pulses are 1+ posterior tibial. No peripheral edema is noted bilaterally. Lower extremities are warm and dry to touch, equal in color and appearance. SKIN: Shows warm and dry, good turgor. No edema. No sores, rashes or bruising throughout. Procedure: Procedure: Options were discussed with the patient. Patient will chart reviewed his current medication regimen updated current review of systems updated today as well. We will preauthorize patient for a third lumbar epidural steroid injection as he is in very well with the first 2 with radicular pain returning and L5-S1 dermatomal distribution greater on the right than the left. We will plan on translaminar approach at L5-S1 level epidural steroid injection upon approval. Patient would be given a Medrol Dosepak in the meantime is to be called into his pharmacy with instructions side effects aware of as well. Medication Injected: Med Injected: None Condition at Discharge: Condition at Discharge: Condition at discharge is stable SHAHEEN BARRAGAN MD Mar 12, 2020 08:18
== END | disposition home or self-care (01) ==
LOC: PNCL 07:43
PROVIDERS: ATTEND Anesthesiology
DX: M51.16 Intervertebral disc disorders with radiculopathy, lumbar region (principal); M96.1 Postlaminectomy syndrome, not elsewhere classified; I10 Essential (primary) hypertension; E11.9 Type 2 diabetes mellitus without complications; Z79.899 Other long term (current) drug therapy
CPT/HCPCS: G0463

== ENCOUNTER → 2020-03-26 | Outpatient (CLI) | payer MEDICARE ==
[2019-09-17 11:00] VITALS: BP 106/70
[~2020-03-26] MED LIST changes: +IOHEXOL 180 MG/ML 10 ML VIAL. ONE; +methylPREDNISolone ACETATE 40 MG/ML VIAL. ONE; +methylPREDNISolone ACETATE 80 MG/ML VIAL. ONE
--- NOTE | 2020-03-26 08:22 | PDOC ---
Progress Note - Pain Clinic Date of Service: DOS: DATE: 03/26/20 TIME: 08:19 Diagnosis: Dx: Lumbar radiculopathy with lumbar degenerative disc disease and lumbar postlaminectomy syndrome History or Present Illness: HPI: 51-year-old male returns follow-up status post lumbar epidurals injection x2. Patient reports about 20% improvement for the first week or so after the injections but the pain returned in the low back bilateral lower extremities posterior gluteus posterior thighs posterior calves worse with standing walking changing positions slightly worse on the right than the left are present bilaterally patient reports pain is burning constant becoming unbearable patient reports is 8 on a scale of 10 is worse the past week 7 on average and a 6-7 at its least is an 8 today patient reports no new motor or sensory deficits no new bowel or bladder incontinence or other complaints still significant pain not significantly improving long-term. Patient reports still worse with walking changing positions getting out of the car try to drive wakes him sleep about every 3-4 hours. Physical Exam: VS: Blood pressure is 120/84 pulse 83 respirations 16 temperature 97.7 F height is 5 feet 7 inches weight is 212 pounds PE: PHYSICAL EXAMINATION: GENERAL: The patient is awake, alert, oriented, appropriate, very pleasant demeanor HEENT: Shows normocephalic, atraumatic. Extraocular movements are intact and symmetrical. Oral cavity: Mucous membranes moist and pink. NECK: Shows anterior throat supple without palpable lymphadenopathy noted. Swallow reflex symmetrical. CHEST: Shows normal on inspection. Breath sounds are clear bilaterally. HEART: Shows S1, S2 clear. No murmurs auscultated. ABDOMEN: Soft, nontender, nondistended. No palpable organomegaly is noted. No rebound or guarding demonstrated. BACK: Shows spine grossly in the midline. Normal-appearing cervical lordotic curvature. There is slightly increased thoracic kyphosis, some minor flattening of the lumbar lordotic curvature. Lumbar paraspinous muscles show symmetrical on inspection, with well-healed midline surgical scar present, on palpation jenny ws some moderate tenderness diffusely throughout the upper, middle and lower distribution of the paraspinous muscles bilaterally and also into the lower thoracic paraspinous musculature, firm and tender, but without specific trigger points, without radiation of pain. The patient has good rotational motion of the lumbar spine, both laterally as well as extension and flexion without significant difficulty. No tenderness over the spinous processes, sacrum or sacroiliac regions. EXTREMITIES: Lower extremities show deep tendon reflexes 1+ in the patellar and tendo calcaneus tendons. Motor exam is 4 on a scale of 5 with right dorsiflex ion, extension, quadriceps and hamstring flexion and 4/5 on the left. Peripheral pulses are 1+ posterior tibial. No peripheral edema is noted bilaterally. Lower extremities are warm and dry to touch, equal in color and appearance. SKIN: Shows warm and dry, good turgor. No edema. No sores, rashes or bruising throughout. Procedure: Procedure: Options were discussed with the patient. Patient will chart was reviewed his his current medication regimen updated current review of systems updated today as well. We will proceed with a third in the series lumbar epidural to injection today with fluoroscopic guidance. Risks were discussed including but not limited to: Bleeding, infection, possibility of epidural hematoma and gonzalez bsequent neurological compromise, dural puncture, headaches, spinal cord and/or nerve damage, side effects of steroid medication, and poor results regarding pain control. Patient understands wished to proceed. Patient return to clinic in approximately 2 weeks for follow-up was counseled as to return appointment activity level and side effects be aware. We also discussed a spinal cord stimulator and patient would like to move forward in the preliminary stages of getting this set up for a stimulator trial. We will make these arrangements as well. Medication Injected: Med Injected: Procedure is lumbar epidural steroid injection under local anesthetic using sterile prep and drape at the L5-S1 level using C-arm fluoroscopic guidance in both AP and lateral views medications injected is 120 mg Depo-Medrol + 10 mL preservative-free normal saline and 2 mL contrast- condition at discharge is stable patient tolerated procedure well had no complications. Condition at Discharge: Condition at Discharge: Condition at discharge stable patient tolerated the procedure well had no com plications. SHAHEEN BARRAGAN MD Mar 26, 2020 08:22
== END | disposition home or self-care (01) ==
LOC: PNCL 07:40
PROVIDERS: ATTEND Anesthesiology
DX: M51.16 Intervertebral disc disorders with radiculopathy, lumbar region (principal); M96.1 Postlaminectomy syndrome, not elsewhere classified; I10 Essential (primary) hypertension; E11.9 Type 2 diabetes mellitus without complications; Z83.3 Family history of diabetes mellitus; Z79.84 Long term (current) use of oral hypoglycemic drugs; Z79.899 Other long term (current) drug therapy; Z79.82 Long term (current) use of aspirin
CPT/HCPCS: 62323; J1030; J1040; Q9965

== ENCOUNTER → 2020-04-24 | Outpatient (CLI) | payer MEDICARE ==
[2019-09-17 11:00] VITALS: BP 106/70
[~2020-04-24] MED LIST changes: -IOHEXOL 180 MG/ML 10 ML VIAL. ONE; +LIDOCAINE 1% PF 2 ML VIAL. ONE; -methylPREDNISolone ACETATE 40 MG/ML VIAL. ONE; -methylPREDNISolone ACETATE 80 MG/ML VIAL. ONE
--- NOTE | 2020-04-24 14:29 | PDOC ---
Progress Note - Pain Clinic Date of Service: DOS: DATE: 04/24/20 TIME: 14:11 Diagnosis: Dx: Lumbar radiculopathy with lumbar degenerative disease and lumbar postlaminectomy syndrome History or Present Illness: HPI: 59-year-old male returns follow-up status post lumbar epidural steroid injections as well as preauthorization and clearance for spinal cord stimulator trial. Patient has obtained this now would like to proceed. Patient reports pain still in the low back bilateral lower extremities right greater than left posterior gluteus posterior thigh posterior calves worse with walking standing changing positions describes sharp burning coming more constant more severe radiating pain in the lower extremities patient reports is a 9 on scale 10 is worse of the past week 7 on average 7 its least and is a 9 today. Patient reports no new motor or sensory deficits no new bowel or bladder incontinence st ill wakes him sleep about every 3-4 hours has been unable to walk comfortably, stand, change positions, sit, or participate in recreational activities secondary to the pain. Physical Exam: VS: Blood pressure 137/82 pulse 83 respiration 16 temperature 98.0 F weight is 211 pounds PE: PHYSICAL EXAMINATION: GENERAL: The patient is awake, alert, oriented, appropriate, very pleasant demeanor HEENT: Shows normocephalic, atraumatic. Extraocular movements are intact and symmetrical. NECK: Shows anterior throat supple without palpable lymphadenopathy noted. CHEST: Shows normal on inspection. Breath sounds are clear bilaterally. HEART: Shows S1, S2 clear. No murmurs auscultated. ABDOMEN: Soft, nontender, nondistended. No palpable organomegaly is noted. No rebound or guarding demonstrated. BACK: Shows spine grossly in the midline. Normal-appearing cervical lordotic curvature. There is slightly increased thoracic kyphosis, some minor flattening of the lumbar lordotic curvature with well-healed midline surgical scar. Lumbar paraspinous muscles show symmetrical on inspection, on palpation shows some moderate tenderness diffusely throughout the upper, middle and lower distribution of the paraspinous muscles bilaterally and also into the lower thoracic paraspinous musculature, firm and tender, but without specific trigger points, without radiation of pain. The patient has limited rotation of the lumbar spine as well as extension secondary to pain and previous surgery. No tenderness over the spinous processes, sacrum or sacroiliac regions. EXTREMITIES: Lower extremities show deep tendon reflexes 1+ in the patellar and tendo calcaneus tendons. Motor exam is 4 on a scale of 5 with right dorsiflexion, extension, quadriceps and hamstring flexion and 4/5 on the left. Peripheral pulses are 1+ posterior tibial. No peripheral edema is noted bilaterally. Lower extremities are warm and dry to touch, equal in color and appearance. SKIN: Shows warm and dry, good turgor. No edema. No sores, rashes or bruising throughout. Procedure: Procedure: Options were discussed with the patient. Patient's old chart was reviewed his his current medication regimen updated current review of systems updated today as well. We will proceed with spinal cord stimulator temporary lead placement x2 with fluoroscopic guidance today. Risks were discussed including but not limited to: Bleeding, infection, possibility of epidural hematoma and subsequent neurological compromise, dural puncture, headaches, spinal cord and/or nerve damage, and poor results regarding pain control. Patient understands wished to proceed. Patient will return to clinic in possibly 1 week for removal of the stimulator leads and reassessment of patient's pain condition. Medication Injected: Med Injected: Under sterile prep and drape patient in prone position using C-arm fluoroscopic guidance patient's lumbar spine was identified and vertebral levels were counted did put external marker on the T8 level. This time the lumbar spine was revisualized and using 1% lidocaine, the area over the ill 3 4 level was anesthetized and then using a 14-gauge [employer] needle with stylette was entered to the epidural space at the L1 -2 level using a paramedian approach to the right with preservative-free normal saline [id number] technique a spiration was noted to be negative and using direct fluoroscopy visualization spinal cord stimulator lead was then advanced without significant resistance in the midline and confirmed posterior with both AP and lateral views, and advanced to the superior endplate of the T8 vertebral level superimposed with the superior spinal cord stimulator electrode lead. Fluoroscopy was used in a lateral view to verify posterior placement in the epidural space at this point as well. At this time a second lead was then introduced in similar fashion at the L to 3 level and inserted and in the epidural space at the L1-2 level once again with preservative-free normal saline raap-la-[id number] technique. Aspiration was again noted to be negative and using direct visualization with fluoroscopy second lumbar spinal cord stimulator lead was advanced without significant resistance in the midline with the superior electrode superimposed over the superior endplate of the T9 vertebral body. Lateral visualization was again confirmed with placement of the stimulator in the posterior epidural space. At this time the needles and stylette were removed with intermittent fluoroscopic visualization maintaining that the leads had not moved during this process and this was confirmed. This time 1% lidocaine was used to anesthetize the skin next to the insertion sites of the stimulator wires and using a 2-0 silk were then sutured in place. Mastisol and Tegaderm was then applied as well as reinforcing tape and gauze. Patient was transferred to the recovery area under his own power walking without difficulty and had no immediate complications from the procedure. Stimulation was then carried out with [facility] representatives. Patient will return to the clinic in approximately 1 week for removal of the temporary leads and reassessment of the patient's pain level. Condition at Discharge: Condition at Discharge: Condition at discharge is stable patient tolerated the procedure well had no immediate complications. SHAHEEN BARRAGAN MD Apr 24, 2020 14:29
== END ==
LOC: PNCL 12:21
PROVIDERS: ATTEND Anesthesiology
DX: M51.16 Intervertebral disc disorders with radiculopathy, lumbar region (principal); M46.1 Sacroiliitis, not elsewhere classified; I10 Essential (primary) hypertension; E11.65 Type 2 diabetes mellitus with hyperglycemia; Z79.84 Long term (current) use of oral hypoglycemic drugs; Z79.899 Other long term (current) drug therapy; Z83.3 Family history of diabetes mellitus
CPT/HCPCS: 63650; C1897; J3490

== ENCOUNTER → 2020-05-01 | Outpatient (CLI) | payer MEDICARE ==
[2019-09-17 11:00] VITALS: BP 106/70
[~2020-05-01] MED LIST changes: -LIDOCAINE 1% PF 2 ML VIAL. ONE
--- NOTE | 2020-05-01 13:16 | PDOC ---
Progress Note - Pain Clinic Date of Service: DOS: DATE: 05/01/20 TIME: 13:12 Diagnosis: Dx: Lumbar radiculopathy with lumbar degenerative disc disease and post lumbar laminectomy syndrome History or Present Illness: HPI: 59-year-old male returns for follow-up status post spinal cord stimulator temporary lead placement x2. Patient reports he did very well over the past week after the leads were placed near 100% improvement in his pain. Patient reports he has been increase his activity to walking greater distances sleeping much better at night reports that his life has returned more to normal. Patient reports is still doing very well and is not looking forward to having the temporary leads removed. Patient reports his pain was an 8 on scale 10 is worse over the past week 6 on average 0 at its least and is a 2 today patient reports no new motor or sensory deficits he was increasing distance walking doing household activities traveling with greater ease and comfort again sleeping better at night no new changes and it patient is very pleased with his progress with the stimulator temporary leads. Physical Exam: VS: Blood pressure is 123/72 pulse 62 respirations 18 temperature 97.3 F height 5 feet 7 inches weight is 208 pounds PE: PHYSICAL EXAMINATION: GENERAL: The patient is awake, alert, oriented, appropriate, very pleasant demeanor HEENT: Shows normocephalic, atraumatic. Extraocular movements are intact and symmetrical. NECK: Shows anterior throat supple without palpable lymphadenopathy noted. Swallow reflex symmetrical. CHEST: Shows normal on inspection. Breath sounds are clear bilaterally. HEART: Shows S1, S2 clear. No murmurs auscultated. ABDOMEN: Soft, nontender, nondistended, obese. No palpable organomegaly is noted. No rebound or guarding demonstrated. BACK: Shows spine grossly in the midline. Normal-appearing cervical lordotic curvature. There is slightly increased thoracic kyphosis, some minor flattening of the lumbar lordotic curvature. Lumbar paraspinous muscles show symmetrical on inspection, bandages were removed and spinal cord stimulator temporary leads sutures were cut under sterile prep and drape with leads removed x2 with tips intact site is clean and dry no erythema no tenderness with palpation no drainage. The patient has good rotational motion of the lumbar spine, both laterally as well as extension and flexion without significant difficulty. No tenderness over the spinous processes, sacrum or sacroiliac regions. EXTREMITIES: Lower extremities show deep tendon reflexes 1+ in the patellar and tendo calcaneus tendons. Motor exam is 4 on a scale of 5 with right dorsifl exion, extension, quadriceps and hamstring flexion and 4/5 on the left. Peripheral pulses are 1+ posterior tibial. No peripheral edema is noted bilaterally. Lower extremities are warm and dry to touch, equal in color and appearance. SKIN: Shows warm and dry, good turgor. No edema. No sores, rashes or bruising throughout. Procedure: Procedure: Options discussed with the patient. Patient's old chart was reviewed his current medication regimen updated current review of systems updated today as well. Moves spinal cord stimulator leads, with tips intact site clean and dry no erythema no tenderness no drainage. We will make arrangements for permanent spinal cord stimulator system in the near future. Patient continue taking his hydrocodone to avoid withdrawal symptoms as discussed and maintain activity as tolerated. Medication Injected: Med Injected: None Condition at Discharge: Condition at Discharge: Condition at discharge is stable. SHAHEEN BARRAGAN MD May 01, 2020 13:16
== END ==
LOC: PNCL 12:31
PROVIDERS: ATTEND Anesthesiology
DX: M51.16 Intervertebral disc disorders with radiculopathy, lumbar region (principal); I10 Essential (primary) hypertension; E11.9 Type 2 diabetes mellitus without complications; Z83.3 Family history of diabetes mellitus; Z79.84 Long term (current) use of oral hypoglycemic drugs; Z79.899 Other long term (current) drug therapy
CPT/HCPCS: G0463